=== PATIENT | female | born 2005 | race Two or more races ===

== ENCOUNTER 2024-06-08 09:41 | Emergency (ER) | payer MEDICAID, SELFPAY ==
[2024-06-08 09:42] VITALS: BMI 17.7
--- NOTE | 2024-06-08 09:50 | XR_ITS ---
Examination: Hand, right 3 views Technique: Right hand AP oblique lateral 3 views Exam date and time: June 08, 2019 5:10 AM Indications: Injury to the head today third digit pain Findings: No acute fracture No dislocation No foreign body Impression: No acute fracture
[2024-06-08 09:55] VITALS: BP 142/85; PULSE 69; RESP 19; TEMP 36.9; O2SAT 97
--- NOTE | 2024-06-08 10:03 | EDNOTE_ITS ---
Upper Extremity Injury RME/HPI General Chief Complaint: Hand/Wrist Problems Stated Complaint: R 3RD DIGIT INJURY Time Seen by Provider: 06/08/24 09:50 Source: patient Arrival date/time: 06/08/24 09:41 18-year-old female with no known medical history presents to the emergency room with a chief complaint of tenderness pain to the third digit on her right hand after smashing her hand on a car door yesterday afternoon. Mode of arrival: ambulatory Limitations: no limitations Related Data Previous Rx's ?Medication ?Instructions ?Recorded acetaminophen 325 mg capsule 650 mg (2 x 325 mg) PO Q6 H PRN 04/13/20 pain #30 caps ibuprofen 400 mg tablet 400 mg PO Q8H #20 tabs 04/13 Allergies Allergy/AdvReac Type Severity Reaction Status Date / Time No Known Allergies Allergy Verified 04/13/20 13:27 Review of Systems Review of Systems Systems Reviewed: All systems reviewed, normal except as documented Constitutional Constitutional: Reports system reviewed and no additional complaints, except as documented, Denies fatigue, Denies fever(s), Denies headache(s) and Denies weakness Eyes Eyes: Reports system reviewed and no additional complaints, except as documented, Denies blurry vision and Denies change in vision ENT Ears, Nose, Mouth, and Throat: Reports system reviewed and no additional complaints, except as documented, Denies otalgia, Denies headache(s), Denies nasal congestion, Denies throat swelling and Denies vertigo Cardiovascular Cardiovascular: Reports system reviewed and no additional complaints, except as documented, Denies chest pain, Denies dyspnea and Denies dyspnea on exertion Respiratory Respiratory: Reports system reviewed and no additional complaints, except as documented, Denies chest congestion, Denies cough, Denies dyspnea, Denies dyspnea on exertion and Denies wheezing Gastrointestinal Gastrointestinal: Reports system reviewed and no additional complaints, except as documented, Denies abdominal pain, Denies cramping, Denies nausea and Denies vomiting Genitourinary Genitourinary: Reports system reviewed and no additional complaints, except as documented Musculoskeletal Musculoskeletal: Reports system reviewed and no additional complaints, except as documented and Denies back pain Integumentary/Breasts Skin/Breast: Reports system reviewed and no additional complaints, except as documented and Denies wounds Neurologic Neurologic: Reports system reviewed and no additional complaints, except as documented, Denies confusion, Denies headache(s), Denies lack of coordination, Denies vertigo and Denies weakness Psychiatric Psychiatric: Reports system reviewed and no additional complaints, except as documented, Denies anxiety, Denies confusion, Denies depression, Denies paranoia, Denies suicidal ideation and Denies tactile hallucinations Endocrine Endocrine: Reports system reviewed and no additional complaints, except as documented and Denies fatigue Hematologic/Lymphatic Hematologic/Lymphatic: Reports system reviewed and no additional complaints, except as documented and Denies lymphadenopathy Allergic/Immunologic Allergic/Immunologic: Reports system reviewed and no additional complaints, except as documented, Denies throat swelling, Denies urticaria and Denies wheezing Past Medical History Past Medical History CARDIAC: Negative Congestive Heart Failure RESPIRATORY: Negative Chronic Obstructive Pulmonary Disease (COPD) GENITOURINARY: Negative Renal Disease ENDOCRINE: Negative Diabetes Mellitus Type 1 or Diabetes Mellitus Type 2 Social History SMOKING STATUS: Never smoker ED Exam General Limitations: Present no limitations General appearance: Present alert and in no apparent distress Head Head exam: Present atraumatic Eye Eye exam: Present normal appearance, PERRL and EOMI ENT ENT exam: Present normal exam, normal oropharynx and mucous membranes moist Neck Neck exam: Present normal inspection, full ROM and trachea midline Chest Chest inspection: Present normal inspection and symmetric chest wall rise Respiratory Respiratory exam: Present normal lung sounds bilaterally Cardiovascular Cardiovascular exam: Present regular rate, normal rhythm and normal heart sounds Abdominal Exam Abdominal exam: Present soft and normal bowel sounds Extremities Exam Extremities exam: Present normal inspection and full ROM Back Exam Back exam: Present normal inspection and full ROM Neurological Exam Neurological exam: Present alert, oriented X3 and CN II-XII intact Psychiatric Psychiatric exam: Present normal affect and normal mood Skin Skin exam: Present warm, dry, intact and normal color Course Quality Measures none Orders Category Date Time Status XR hand comp RT min 3V Stat Exams 06/08/24 09:50 Completed Vital Signs Vital signs: Vital Signs Temperature 98.5 F 06/08/24 09:55 Pulse Rate 69 06/08/24 09:55 Respiratory Rate 19 06/08/24 09:55 Blood Pressure 142/85 H 06/08/24 09:55 Pulse Oximetry (%) 97 06/08/24 09:55 Oxygen Delivery Method Room Air 06/08/24 09:55 O2 saturation 97% within normal limits Extremity Injury MDM Narrative MDM Narrative:: 18-year-old female with no known medical history presents to the emergency room with a chief complaint of tenderness pain to the third digit on her right hand after smashing her hand on a car door yesterday afternoon. Patient is hemodynamically stable and in no apparent distress Physical examination shows pain and tenderness to the right middle finger. There is bleeding in the nailbed patient states this injury occurred yesterday. X-ray of the hand was completed and was negative for any acute fracture or dislocation. Patient was discharged and educated to follow-up with primary care provider and return the emergency room for any evidence of worsening signs or send Patient data External records reviewed:: [facility] previous records Clinical information provided by:: patient Social determinants that could affect healthcare access:: none Patient has the following chronic illnesses:: No chronic illness How is presenting disease/condition affected by chronic disease/condition?: no chronic disease Evaluation data The following diagnostics were reviewed and interpreted by me:: lab results and radiology exam(s) Lab and/or radiology exams considered but not ordered:: Labs and radiology exams considered and ordered Interpretation Summary: Finger [id number]: No acute fracture No dislocation No foreign body Impression: No acute fracture Medications / Prescriptions Medications or Prescriptions considered but not ordered:: Medication not given Medication administrations:: Medication not given Consultations Consultation(s) initiated? (list below): No Diagnosis Upper Extremity Injury Differential Diagnosis: finger sprain and other (Finger fracture) Most likely diagnosis given after review of the tests above:: Finger sprain Admission Indicated Admission indicated?: not indicated Admission Request Was there a request for admission?: No Disposition Plan Disposition Plan: Discharge Discharge Attestation Discharge Attestation: The patient and all family members were given an opportunity to ask questions and understood the discharge instructions. Discharge instructions specifically effects, indications for sooner follow up or return to the emergency department, and the expected course of current diagnosis. Patient condition: Stable Discharge Plan Plan Patient Disposition: HOME (Self Care) Disposition Comment: Stable Prescriptions/Referrals Prescriptions/Med Rec: No Action acetaminophen 325 mg capsule 650 mg PO Q6H PRN (Reason: pain) Qty: 30 0RF ibuprofen 400 mg tablet 400 mg PO Q8H Qty: 20 0RF Referrals: No Primary/Family,Physician [Primary Care Provider] - In 1 week Problem List Clinical Impression: Finger sprain Patient/Caregiver Discharge Instructions Education Materials: ED Finger Sprain Additional Instructions: Please follow-up with your primary care provider in the next 24 to 48 hours. X-ray was completed and was negative for any acute fracture. For any evidence of worsening signs or symptoms please return to the emergency room immediately Print Language: Azeri Stand Alone Forms: Valeria Award Info., Work/School Release, Patient Portal Info Letter PA/SPORTS ATHLETIC TRAINER Supervising Physician PA/SPORTS ATHLETIC TRAINER Supervising Physician: Dr Haro
[2024-06-08 13:13] VITALS: BP 109/72; PULSE 62; RESP 18; TEMP 36.8; O2SAT 98
== END 2024-06-08 13:18 | disposition home or self-care (01) ==
PROVIDERS: Emergency Provider Emergency Medicine
DX: S63.612A Unspecified sprain of right middle finger, initial encounter (principal); W23.0XXA Caught, crushed, jammed, or pinched between moving objects, initial encounter
CPT/HCPCS: 73130; 99283

== ENCOUNTER 2024-10-01 13:06 | Emergency (ER) | payer MEDICAID, SELFPAY ==
[2024-10-01 13:23] VITALS: BP 118/74; PULSE 73; RESP 20; TEMP 37.1; O2SAT 99
--- NOTE | 2024-10-01 13:29 | XR_ITS ---
Examination: Abdomen sonogram, Limited Date and time of exam: October 01, 2024 1400 hours INDICATIONS: Right upper abdominal pain with nausea vomiting beginning 2 days ago Technique: Real-time ring scale transabdominal sonographic images of the upper abdomen obtained. Findings: No sonographic visualization appendix IMPRESSION: No sonographic visualization appendix
--- NOTE | 2024-10-01 13:35 | PD.EDABDPN ---
ED Abdominal Pain RME/HPI General Chief Complaint: Nausea/Vomiting/Diarrhea Stated complaint: SEVERE N/V/D W/ ABD PAIN SINCE YESTERDAY Time seen by provider: 10/01/24 13:21 Arrival date/time: 10/01/24 13:06 19-year-old female with no known medical history presents to the emergency room with a chief complaint of nausea, vomiting, diarrhea, right lower quadrant abdominal pain x 2 days Source: patient Mode of arrival: ambulatory Limitations: no limitations Related Data Previous Rx's ?Medication ?Instructions ?Recorded acetaminophen 325 mg capsule 650 mg (2 x 325 mg) PO Q6H PRN 04/13/20 pain #30 caps ibuprofen 400 mg tablet 400 mg PO Q8H #20 tabs 04/13/20 loperamide 2 mg capsule 2 mg PO Q6H PRN loose stool #14 10/01/24 (Anti-Diarrheal (loperamide)) caps ondansetron 4 mg disintegrating 4 mg PO Q8H PRN nausea and 10/01/24 tablet vomiting #14 tabs Allergies Allergy/AdvReac Type Severity Reaction Status Date / Time No Known Allergies Allergy Verified 10/01/24 13:09 Review of Systems Review of Systems Systems Reviewed: All systems reviewed, normal except as documented Constitutional Constitutional: Reports system reviewed and no additional complaints, except as documented, Denies fatigue, Denies fever(s), Denies headache(s) and Denies weakness Eyes Eyes: Reports system reviewed and no additional complaints, except as documented, Denies blurry vision and Denies change in vision ENT Ears, Nose, Mouth, and Throat: Reports system reviewed and no additional complaints, except as documented, Denies otalgia, Denies headache(s), Denies nasal congestion, Denies throat swelling and Denies vertigo Cardiovascular Cardiovascular: Reports system reviewed and no additional complaints, except as documented, Denies chest pain, Denies dyspnea and Denies dyspnea on exertion Respiratory Respiratory: Reports system reviewed and no additional complaints, except as documented, Denies chest congestion, Denies cough, Denies dyspnea, Denies dyspnea on exertion and Denies wheezing Gastrointestinal Gastrointestinal: Reports system reviewed and no additional complaints, except as documented, Reports abdominal pain, Reports cramping, Reports loose stools, Reports nausea and Reports vomiting Genitourinary Genitourinary: Reports system reviewed and no additional complaints, except as documented Musculoskeletal Musculoskeletal: Reports system reviewed and no additional complaints, except as documented and Denies back pain Integumentary/Breasts Skin/Breast: Reports system reviewed and no additional complaints, except as documented and Denies wounds Neurologic Neurologic: Reports system reviewed and no additional complaints, except as documented, Denies confusion, Denies headache(s), Denies lack of coordination, Denies vertigo and Denies weakness Psychiatric Psychiatric: Reports system reviewed and no additional complaints, except as documented, Denies anxiety, Denies confusion, Denies depression, Denies paranoia, Denies suicidal ideation and Denies tactile hallucinations Endocrine Endocrine: Reports system reviewed and no additional complaints, except as documented and Denies fatigue Hematologic/Lymphatic Hematologic/Lymphatic: Reports system reviewed and no additional complaints, except as documented and Denies lymphadenopathy Allergic/Immunologic Allergic/Immunologic: Reports system reviewed and no additional complaints, except as documented, Denies throat swelling, Denies urticaria and Denies wheezing Past Medical History Past Medical History CARDIAC: Negative Congestive Heart Failure RESPIRATORY: Negative Chronic Obstructive Pulmonary Disease (COPD) GENITOURINARY: Negative Renal Disease ENDOCRINE: Negative Diabetes Mellitus Type 1 or Diabetes Mellitus Type 2 Social History SMOKING STATUS: Never smoker ED Exam General Limitations: Present no limitations General appearance: Present alert and in no apparent distress Head Head exam: Present atraumatic Eye Eye exam: Present normal appearance, PERRL and EOMI ENT ENT exam: Present normal exam, normal oropharynx and mucous membranes moist Neck Neck exam: Present normal inspection, full ROM and trachea midline Chest Chest inspection: Present normal inspection and symmetric chest wall rise Respiratory Respiratory exam: Present normal lung sounds bilaterally Cardiovascular Cardiovascular exam: Present regular rate, normal rhythm and normal heart sounds Abdominal Exam Abdominal exam: Present soft, tenderness and normal bowel sounds; Absent Sheriff's sign or tenderness at [place]'s [place] Abdominal tenderness: Present RLQ Extremities Exam Extremities exam: Present normal inspection and full ROM Back Exam Back exam: Present normal inspection and full ROM Neurological Exam Neurological exam: Present alert, oriented X3 and CN II-XII intact Psychiatric Psychiatric exam: Present normal affect and normal mood Skin Skin exam: Present warm, dry, intact and normal color Course Quality Measures none Orders Category Date Time Status US abdomen limited Stat Exams 10/01/24 13:29 Completed CBC Stat Lab 10/01/24 13:41 Completed CMP [Comprehensive Metabolic Panel] Stat Lab 10/01/24 13:41 Completed HCG Qualitative,Urine Stat Lab 10/01/24 13:40 Completed Lipase Stat Lab 10/01/24 13:41 Completed UA [Urinalysis] Stat Lab 10/01/24 13:40 Completed Urine Culture Stat Lab 10/01/24 13:40 Received Vital Signs Vital signs: Vital Signs Temperature 98.8 F 10/01/24 13:23 Pulse Rate 73 10/01/24 13:23 Respiratory Rate 20 10/01/24 13:23 Blood Pressure 118/74 10/01/24 13:23 Pulse Oximetry (%) 99 10/01/24 13:23 Oxygen Delivery Method Room Air 10/01/24 13:23 O2 saturation 99% within normal limits Abdominal Pain MDM MDM Narrative MDM Narrative:: 19-year-old female with no known medical history presents to the emergency room with a chief complaint of nausea, vomiting, diarrhea, right lower quadrant abdominal pain x 2 days Patient is hemodynamically stable and in no apparent distress. She is afebrile not tachycardic not tachypneic Physical examination shows some tenderness to the epigastric area of her abdomen as well as the right lower quadrant. There is negative tenderness to McBurney's point and there is no rebound tenderness. The patient is having vomiting diarrhea and states that she is having intermittent fevers at home. Ultrasound of the right lower quadrant was completed and was negative examination as appendix was unable to be visualized due to the bowel gas. CBC CMP were negative for any leukocytosis. Based on the Cohn score there is a low suspicion for appendicitis. The patient has no leukocytosis. Patient was discharged and educated to follow-up with primary care provider in the next 24 to 48 hours and return to the emergency room for any evidence of worsening signs or symptoms Patient data External records reviewed:: [facility] previous records Clinical information provided by:: patient Social determinants that could affect healthcare access:: none Patient has the following chronic illnesses:: No chronic illness How is presenting disease/condition affected by chronic disease/condition?: no chronic disease Evaluation data The following diagnostics were reviewed and interpreted by me:: lab results and radiology exam(s) Lab and/or radiology exams considered but not ordered:: Labs and radiology exams considered and ordered Interpretation Summary: Ultrasound abdomen-Findings: No sonographic visualization appendix IMPRESSION: No sonographic visualization appendix Medications / Prescriptions Medications or Prescriptions considered but not ordered:: No medication given Medication administrations:: No medication given Consultations Consultation(s) initiated? (list below): No Diagnosis Differential diagnosis abdominal pain: abdominal pain, acute appendicitis, constipation and gastroenteritis Most likely diagnosis given after review of the tests above:: Gastroenteritis Admission Indicated Admission indicated?: not indicated Admission Request Was there a request for admission?: No Disposition Plan Disposition Plan: Discharge Discharge Attestation Discharge Attestation: The patient and all family members were given an opportunity to ask questions and understood the discharge instructions. Discharge instructions specifically effects, indications for sooner follow up or return to the emergency department, and the expected course of current diagnosis. Patient condition: Stable Discharge Plan Plan Patient Disposition: HOME (Self Care) Discharge Disposition comment: Stable Prescriptions/Referrals Prescriptions/Med Rec: New loperamide [Anti-Diarrheal (loperamide)] 2 mg capsule 2 mg PO Q6H PRN (Reason: loose stool) Qty: 14 0RF ondansetron 4 mg tablet,disintegrating 4 mg PO Q8H PRN (Reason: nausea and vomiting) Qty: 14 0RF No Action acetaminophen 325 mg capsule 650 mg PO Q6H PRN (Reason: pain) Qty: 30 0RF ibuprofen 400 mg tablet 400 mg PO Q8H Qty: 20 0RF Referrals: No Primary/Family,Physician [Primary Care Provider] - In 1 week Problem List Clinical Impression: Gastroenteritis Patient/Caregiver Discharge Instructions Education Materials: Understanding Colitis, ED Gastroenteritis, Noninfectious Additional Instructions: Please follow-up with your primary care provider in the next 24 to 48 hours Medication was sent to your pharmacy please pick it up and take it as indicated to help you with your signs and symptoms Your ultrasound was negative for any acute findings Your blood work and urinalysis were within normal limits For any evidence of worsening signs or symptoms return to the emergency room immediately Print Language: [place] Citizen Stand Alone Forms: Valeria Award Info., Work/School Release, Patient Portal Info Letter PA/LORRI Supervising Physician NORBERTO/LORRI Supervising Physician: Dr. Bell
[2024-10-01 13:56] LABS: Basophils % (Auto) 0 % (0-2.5); Eosinophils # (Auto) 0.1 Thou/mm3 (0.0-0.5); Eosinophils % (Auto) 1 % (0-10); Hematocrit 42.1 % (36.0-46.0); Hemoglobin 14.9 g/dL (12.0-16.0); Immature Granulocytes % (Auto) 0 % (0-0); Immature Granulocytes Auto 0.02 Thou/mm3 (0.00-0.00); Lymphocytes # (Auto) 0.8 Thou/mm3 (1.0-4.8); Lymphocytes % (Auto) 7 % (10-50); Mean Corpuscular HGB Conc 35.4 g/dl (31.0-37.0); Mean Corpuscular Hemoglobin 31.9 pg (25.0-35.0); Mean Corpuscular Volume 90 fL (80-100); Monocytes # (Auto) 0.6 Thou/mm3 (0.0-0.8); Monocytes % (Auto) 6 % (0-12); Neutrophils # (Auto) 8.9 Thou/mm3 (1.8-7.7); Neutrophils % (Auto) 86 % (37-80); Nucleated Red Blood Cell % 0 /100 WBC (0); Platelet Count 203 Thou/mm3 (140-440); RDW Standard Deviation 39.9 fL (36.4-46.3); Red Blood Count 4.67 Miln/mm3 (4.00-5.20); White Blood Count 10.3 Thou/mm3 (3.6-11.0)
[2024-10-01 14:06] LABS: Collection Type, Urine Clean Catch
[2024-10-01 14:12] LABS: HCG Qualitative,Urine Negative
[2024-10-01 14:14] LABS: Alanine Aminotransferase 42 U/L (10-49); Alkaline Phosphatase 55 U/L (46-116); Anion Gap 11 (7-16); BUN/Creatinine Ratio 16 Ratio (12-20); Bilirubin,Total 1.1 mg/dL (0.3-1.2); Blood Urea Nitrogen 11 mg/dL (9-23); Calcium 9.3 mg/dL (8.3-10.6); Calcium (Corrected) 9.3 mg/dL (8.5-10.1); Carbon Dioxide 27.1 mMol/L (20.0-31.0); Chloride 103 mMol/L (98-107); Creatinine (Component) 0.7 mg/dL (0.6-1.3); Globulin 2.5 gm/dL (2.3-3.5); Glucose 100 mg/dL (74-106); Lipase 27 U/L (12-53); Osmolality,Calculated 280 (275-295); Potassium 3.6 mMol/L (3.4-5.1); Sodium 141 mMol/L (136-145); Total Protein 7.5 gm/dL (5.7-8.2); eGFR > 60 See Note
[2024-10-01 14:17] LABS: Bilirubin,Urine Negative (Negative); Blood,Urine Negative (Negative); Clarity,Urine Clear (Clear/Hazy); Color,Urine Lt-Yellow (Lt Yel-Yel); Glucose, Urine Negative (Negative); Ketones,Urine Trace (Negative); Leukocyte Esterase,Urine Negative (Negative); Nitrite,Urine Negative (Negative); PH,Urine 7.5 (5.0-7.0); Protein,Urine Negative (Neg - Trace); RBC,Urine 1 /hpf (0-3); Specific Gravity,Urine 1.019 (1.001-1.035); Squamous Epithelial Cell,Urine 1 /hpf (0-5); Urobilinogen,Urine Negative mg/dL (0.0-1.0); WBC,Urine < 1 /hpf (0-5)
[2024-10-01 15:54] VITALS: BP 105/60; PULSE 74; RESP 16; O2SAT 99
== END 2024-10-01 15:55 | disposition home or self-care (01) ==
PROVIDERS: Nurse Practitioner Family; Emergency Provider Emergency Medicine
DX: K52.9 Noninfective gastroenteritis and colitis, unspecified (principal)
CPT/HCPCS: 36415; 76705; 80053; 81001; 81025; 83690; 85025; 87086; 99284

== ENCOUNTER 2025-02-02 12:14 | Emergency (ER) | payer MEDICAID, SELFPAY ==
[2025-02-02 12:14] VITALS: BMI 18.6
[2025-02-02 12:53] VITALS: BP 120/80; PULSE 88; RESP 18; TEMP 36.9; O2SAT 99
--- NOTE | 2025-02-02 12:56 | XR_ITS ---
Examination: Abdomen sonogram, Limited Date and time of exam: February 02, 2025, 1300 hours INDICATIONS: Epigastric pain beginning 3 days ago Technique: Real-time ring scale transabdominal sonographic images of the upper abdomen obtained. Findings: Normal gallbladder. Normal common bile duct 0.3 cm Pancreatic head 1.0 cm Liver 14.5 cm smooth contour no focal liver lesions Normal hepatopetal portal venous IMPRESSION: Normal gallbladder Normal common bile duct
[2025-02-02 14:14] LABS: Basophils # (Auto) 0.0 Thou/mm3 (0.0-0.2); Basophils % (Auto) 1 % (0-2.5); Eosinophils # (Auto) 0.0 Thou/mm3 (0.0-0.5); Eosinophils % (Auto) 0 % (0-10); Hematocrit 38.8 % (36.0-46.0); Hemoglobin 13.3 g/dL (12.0-16.0); Immature Granulocytes Auto 0.02 Thou/mm3 (0.00-0.00); Lymphocytes # (Auto) 2.1 Thou/mm3 (1.0-4.8); Lymphocytes % (Auto) 28 % (10-50); Mean Corpuscular HGB Conc 34.3 g/dl (31.0-37.0); Mean Corpuscular Hemoglobin 31.2 pg (25.0-35.0); Mean Corpuscular Volume 91 fL (80-100); Monocytes # (Auto) 0.7 Thou/mm3 (0.0-0.8); Monocytes % (Auto) 9 % (0-12); Neutrophils # (Auto) 4.7 Thou/mm3 (1.8-7.7); Neutrophils % (Auto) 62 % (37-80); Nucleated Red Blood Cell # 0.00 Thou/mm3 (0.00-0.00); Nucleated Red Blood Cell % 0 /100 WBC (0); Platelet Count 239 Thou/mm3 (140-440); RDW Standard Deviation 39.7 fL (36.4-46.3); Red Blood Count 4.26 Miln/mm3 (4.00-5.20); White Blood Count 7.5 Thou/mm3 (3.6-11.0)
[2025-02-02 14:18] LABS: Collection Type, Urine Clean Catch
[2025-02-02 14:32] LABS: Alanine Aminotransferase 12 U/L (10-49); Albumin, Serum 4.9 gm/dL (3.5-5.0); Albumin/Globulin Ratio 2.0 (1.2-2.2); Alkaline Phosphatase 42 U/L (46-116); Anion Gap 11 (7-16); Aspartate Amino Transferase 15 U/L (0-34); BUN/Creatinine Ratio 11 Ratio (12-20); Bilirubin,Total 0.8 mg/dL (0.3-1.2); Blood Urea Nitrogen 8 mg/dL (9-23); Calcium 9.6 mg/dL (8.3-10.6); Calcium (Corrected) 9.6 mg/dL (8.5-10.1); Carbon Dioxide 23.7 mMol/L (20.0-31.0); Chloride 104 mMol/L (98-107); Creatinine (Component) 0.7 mg/dL (0.6-1.3); Estimated Creatinine Clearance 104.7 mL/min (>60); Globulin 2.4 gm/dL (2.3-3.5); Glucose 87 mg/dL (74-106); Lipase 28 U/L (12-53); Osmolality,Calculated 274 (275-295); Potassium 3.6 mMol/L (3.4-5.1); Sodium 139 mMol/L (136-145); Total Protein 7.3 gm/dL (5.7-8.2); eGFR > 60 See Note
[2025-02-02 14:47] LABS: HCG Qualitative,Urine Positive
[2025-02-02 14:55] LABS: Bilirubin,Urine Negative (Negative); Blood,Urine 3+ (Negative); Color,Urine Lt-Yellow (Lt Yel-Yel); Glucose, Urine Negative (Negative); Ketones,Urine Negative (Negative); Leukocyte Esterase,Urine Positive (Negative); Nitrite,Urine Negative (Negative); PH,Urine 6.5 (5.0-7.0); Protein,Urine Trace (Neg - Trace); RBC,Urine 3 /hpf (0-3); Specific Gravity,Urine 1.019 (1.001-1.035); Squamous Epithelial Cell,Urine 8 /hpf (0-5); Urobilinogen,Urine Negative mg/dL (0.0-1.0); WBC,Urine 6 /hpf (0-5)
--- NOTE | 2025-02-02 14:55 | XR_ITS ---
Examination: Complete OB ultrasound, less than 14 weeks, transabdominal Date and time of exam: February 02, 2025, 1605 hours INDICATIONS: Abdominal pain nausea vomiting beginning 3 days ago Technique: Obstetrical ultrasound images less than 14 weeks performed via transabdominal imaging Findings: Uterus 8.7 cm, empty intrauterine gestational sac 1.5 cm corresponds to 6 weeks 2 days gestational age No cardiac motion no pole Right ovary 4.5 cm arterial flow 21 mm cyst Left ovary 3.5 cm arterial flow IMPRESSION: Empty intrauterine gestational sac corresponding to 6 weeks 2 days gestational age Recommend transvaginal pelvic sonography follow-up to best assess for viability
[2025-02-02 14:58] LABS: Clarity,Urine Hazy (Clear/Hazy)
--- NOTE | 2025-02-02 16:47 | EDNOTE_ITS ---
ED Abdominal Pain RME/HPI General Chief Complaint: Abdominal Pain Stated complaint: EPIGASTRIC PAIN FOR FEW DAYS Time seen by provider: 02/02/25 12:24 Arrival date/time: 02/02/25 12:14 This is a case of 19-year-old female with no medical history came in in the emergency room due to abdominal pain mostly on the epigastric area for 3 days with no associated symptoms denies any nausea vomiting constipation diarrhea or blood in stool patient states that she might be 1 para 0 denies any vaginal bleeding vaginal spotting or vaginal discharge no fever no chills Limitations: no limitations Related Data Previous Rx's ?Medication ?Instructions ?Recorded acetaminophen 325 mg capsule 650 mg (2 x 325 mg) PO Q6 H PRN 04/13/20 pain #30 caps ibuprofen 400 mg tablet 400 mg PO Q8H #20 tabs 04/13 loperamide 2 mg capsule 2 mg PO Q6H PRN loose stool #14 10/01/24 (Anti-Diarrheal (loperamide)) caps ondansetron 4 mg disintegrating 4 mg PO Q8H PRN nausea and 10/01/24 tablet vomiting #14 tabs nitrofurantoin 100 mg PO BID #20 caps 02/02 monohydrate/macrocrystals 100 mg capsule (Macrobid) vit no.95-ferrous 1 tab PO QDAY #30 tabs 01/21 07/15 fumarate 28 mg-folic acid 800 mcg tablet () Allergies Allergy/AdvReac Type Severity Reaction Status Date / Time No Known Allergies Allergy Verified 02/02/25 12:16 Review of Systems Review of Systems Systems Reviewed: All systems reviewed, normal except as documented Constitutional Constitutional: Reports system reviewed and no additional complaints, except as documented and Reports as per HPI ENT Ears, Nose, Mouth, and Throat: Denies dysphagia and Denies odynophagia Cardiovascular Cardiovascular: Reports system reviewed and no additional complaints, except as documented and Reports as per HPI Respiratory Respiratory: Reports system reviewed and no additional complaints, except as documented and Reports as per HPI Gastrointestinal Gastrointestinal: Reports system reviewed and no additional complaints, except as documented, Reports as per HPI, Reports abdominal pain, Denies belching, Denies bloating, Denies change in bowel habits, Denies change in stool character, Denies coffee ground emesis, Denies constipation, Denies cramping, D enies diarrhea, Denies dyspepsia, Denies dysphagia, Denies early satiety, Denies excessive flatus, Denies fecal incontinence, Denies heartburn, Denies hematemesis, Denies hematochezia, Denies loose stools, Denies melena, Denies nausea, Denies odynophagia and Denies tenesmus Neurologic Neurologic: Reports system reviewed and no additional complaints, except as documented and Reports as per HPI Past Medical History Past Medical History CARDIAC: Negative Congestive Heart Failure RESPIRATORY: Negative Chronic Obstructive Pulmonary Disease (COPD) GENITOURINARY: Negative Renal Disease ENDOCRINE: Negative Diabetes Mellitus Type 1 or Diabetes Mellitus Type 2 Social History SMOKING STATUS: Never smoker ED Exam General Limitations: Present no limitations General appearance: Present alert, in no apparent distress and other Head Head exam: Present atraumatic, normocephalic and normal inspection Eye Eye exam: Present normal appearance, PERRL and EOMI ENT ENT exam: Present normal exam, normal oropharynx and mucous membranes moist Neck Neck exam: Present normal inspection, full ROM and trachea midline; Absent tenderness, meningismus, lymphadenopathy or thyromegaly Chest Chest inspection: Present normal inspection and symmetric chest wall rise; Absent tenderness Respiratory Respiratory exam: Present normal lung sounds bilaterally; Absent respiratory distress, wheezes, stridor, accessory muscle use or prolonged expiratory phase Cardiovascular Cardiovascular exam: Present regular rate, normal rhythm and normal heart sounds; Absent bradycardia, tachycardia, irregular rhythm, systolic murmur or diastolic murmur Abdominal Exam Abdominal exam: Present soft, normal bowel sounds and other (No CVA tenderness bladder is not distended not tender); Absent distention, tenderness, guarding, rebound, rigidity, diminished bowel sounds, hyperactive bowel sounds, hypoactive bowel sounds, organomegaly, psoas sign, obturator sign, Sheriff's sign, Rovsing's sign or tenderness at McBurney's Point Extremities Exam Extremities exam: Present normal inspection and full ROM Back Exam Back exam: Present normal inspection and full ROM Neurological Exam Neurological exam: Present alert, oriented X3, CN II-XII intact, normal gait and reflexes normal; Absent motor sensory deficit Psychiatric Psychiatric exam: Present normal affect and normal mood Skin Skin exam: Present warm, dry, intact, normal color and other (Excellent skin turgor) Course Quality Measures none Orders Category Date Time Status US OB <= 14 weeks fetus Stat Exams 02/02/25 14:55 Completed US gall bladder Stat Exams 02/02/25 12:56 Completed Beta HCG,Quantitative Stat Lab 02/02/25 14:00 Completed CBC Stat Lab 02/02/25 14:00 Completed Comprehensive Metabolic Panel Stat Lab 02/02/25 14:00 Completed HCG Qualitative,Urine Stat Lab 02/02/25 13:39 Completed Lipase Stat Lab 02/02/25 14:00 Completed Urinalysis Stat Lab 02/02/25 13:39 Completed Vital Signs Vital signs: Vital Signs Temperature 98.5 F 02/02/25 12:53 Pulse Rate 88 02/02/25 12:53 Respiratory Rate 18 02/02/25 12:53 Blood Pressure 120/80 02/02/25 12:53 Pulse Oximetry (%) 99 02/02/25 12:53 Oxygen Delivery Method Room Air 02/02/25 12:53 Oxygen saturation is 99% in room Abdominal Pain MDM MDM Narrative MDM Narrative:: This is a case of 19-year-old female with no medical history came in in the emergency room due to abdominal pain mostly on the epigastric area for 3 days with no associated symptoms denies any nausea vomiting constipation diarrhea or blood in stool patient states that she might be 1 para 0 denies any vaginal bleeding vaginal spotting or vaginal discharge no fever no chills physical examination patient is awake alert oriented not in distress nontoxic looking well-hydrated well-nourished excellent skin turgor abdominal exam is benign nonsurgical no guarding no rebound no rigidity negative psoas negative obturator negative Rovsing's negative Romi's no Sheriff sign negative CVA tenderness bladder is not distended not tender excellent skin turgor the rest of the physical examination neurological exam is normal and unremarkable blood test showed no leukocytosis no anemia kidney and liver function is normal no electrolyte imbalance lipase is normal urinalysis showed WBC and urine suggestive of urinary tract infection patient initial test is positive thus I ordered beta-hCG and noted to [id number] ultrasound showed empty uterine gestational sac based on my physical examination and history patient symptoms suggestive of abdominal pain in possible due to urinary tract infec tion I have long discussion with the patient patient needs to see an OB clinical safety specialist for further evaluation and treatment and to have repeat transvaginal ultrasound and beta-hCG to rule out ectopic threatened early since there is no vaginal bleeding or vaginal discharge patient is stable to be discharged home for any worsening symptoms or any emergent concerns she will return in the emergency room immediately or call 911 she was also advised if not seen OB in 2 days return to the emergency room for ultrasound and beta-hCG patient understood verbally the discharge instruction patient was given Macrobid for urinary tract Patient was discharged with comfortable condition walking with stable gait. Patient verbalized no further complains explained diagnosis and answered patient question. Patient is comfortable with the proposed management plan including the need to follow up with his/her primary care physician and any specialist if applicable Discussed patient for any urgent condition or worsening sx, He/She needed to go to emergency room immediately or call 911. Patient acknowledge the responsibility to follow up as instructed and to monitor her/his symptoms. For any persistence of the symptoms for more than 3-5 days return precaution advised. Discussed the result of the test and was given printed discharge instruction Patient data External records reviewed:: [facility] previous records Clinical information provided by:: patient Social determinants that could affect healthcare access:: none Patient has the following chronic illnesses:: None How is presenting disease/condition affected by chronic disease/condition?: no chronic disease Evaluation data The following diagnostics were reviewed and interpreted by me:: lab results and radiology exam(s) Lab and/or radiology exams considered but not ordered:: Reviewed Interpretation Summary: Reviewed Medications / Prescriptions Medications or Prescriptions considered but not ordered:: Given Medication administrations:: Given Consultations Consultation(s) initiated? (list below): No Diagnosis Differential diagnosis abdominal pain: abdominal pain and other (Abdominal pain in early urinary tract infection) Most likely diagnosis given after review of the tests above:: Abdominal pain in early urinary tract Admission Indicated Admission indicated?: not indicated Explain why admission is indicated or not indicated:: Not indicated Admission Request Was there a request for admission?: No Admission Attestation Admission request attestation: Not indicate Disposition Plan Disposition Plan: Discharge Discharge Attestation Discharge Attestation: The patient and all family members were given an opportunity to ask questions and understood the discharge instructions. Discharge instructions specifically effects, indications for sooner follow up or return to the emergency department, and the expected course of current diagnosis. Patient condition: Stable Discharge Plan Plan Patient Disposition: HOME (Self Care) Patient condition on transfer: Stable Prescriptions/Referrals Prescriptions/Med Rec: New nitrofurantoin monohyd/m-cryst [Macrobid] 100 mg capsule 100 mg PO BID Qty: 20 0RF Rx Instructions: must administer with a meal/food PNV no.95-ferrous fumarate-FA [] 28 mg iron- 800 mcg tablet 1 tab PO QDAY Qty: 30 0RF No Action acetaminophen 325 mg capsule 650 mg PO Q6H PRN (Reason: pain) Qty: 30 0RF ibuprofen 400 mg tablet 400 mg PO Q8H Qty: 20 0RF loperamide [Anti-Diarrheal (loperamide)] 2 mg capsule 2 mg PO Q6H PRN (Reason: loose stool) Qty: 14 0RF ondansetron 4 mg tablet,disintegrating 4 mg PO Q8H PRN (Reason: nausea and vomiting) Qty: 14 0RF Referrals: Barry Cullen MD [Primary Care Provider, Family Practice] - In 1 week Talia Nguyen MD [Physician, [facility]] - 02/02/25 Referral Note: For further evaluation and treatment of abdominal pain in to have repeat transvaginal ultrasound and beta hCG to rule out ectopic or early Problem List Clinical Impression: Abdominal pain during , Urinary tract infection Patient/Caregiver Discharge Instructions Education Materials: Abdominal Pain, Urinary Tract Infections in Women, ED Abdominal Pain, Early Additional Instructions: It is very important to see an OB clinical safety specialist for further evaluation and treatment of abdominal pain in to have repeat transvaginal ultrasound to rule out ectopic or early or threatened in early worsening symptoms or any emergent concern call 911 or go to the nearest emergency room take your medication as directed finish the course of antibiotic keep hydrated Pedialyte for hydration worsening symptoms or any emergent condition call 911 or go to the nearest emergency room if you will not see any OB clinical safety specialist in 2 days return to the emergency room to have repeat beta-hCG and transvaginal ultrasound to rule out the above impression continue to take your multivitamins Print Language: Setswana Stand Alone Forms: Valeria Award Info., Patient Portal Info Letter PA/BULB GRADER Supervising Physician PA/BULB GRADER Supervising Physician: Dr. Villa
== END 2025-02-02 17:44 | disposition home or self-care (01) ==
PROVIDERS: Nurse Practitioner Family; Emergency Provider Family Medicine; PCP Family Medicine
DX: O23.40 Unspecified infection of urinary tract in pregnancy, unspecified trimester (principal); Z3A.14 14 weeks gestation of pregnancy
CPT/HCPCS: 36415; 76705; 76801; 80053; 81001; 81025; 83690; 84702; 85025; 99283

== ENCOUNTER 2025-02-04 11:00 | Emergency (ER) | payer MEDICAID, SELFPAY ==
--- NOTE | 2025-02-04 11:11 | XR_ITS ---
Examination: OB Transvaginal ultrasound of the pelvis, complete Technique: Transvaginal sonographic images pelvis performed using ring scale imaging Exam date and time: February 04, 2025, 1113 hours INDICATIONS: Pelvic pain this week, empty intrauterine gestational sac corresponding to 6 weeks 2 days gestational age Ultrasound study February 02, 2025 FINDINGS: Uterus 9.1 cm pole 0.3 cm corresponds to 5 weeks 6 days gestational age Cardiac motion 117 bpm Right ovary 3.9 cm arterial flow, hemorrhagic cyst 20 x 16 mm Left ovary 3.0 cm arterial flow IMPRESSION: Viable intrauterine gestation 5 weeks 6 days.
[2025-02-04 11:19] VITALS: BP 121/84; PULSE 68; RESP 18; TEMP 37.2; O2SAT 99; BMI 17.9
--- NOTE | 2025-02-04 15:22 | PD.EDFMALE ---
ED Female Urogenital RME/HPI General Chief complaint: General Adult/Misc Complain Stated complaint: NEEDS US TO CONFIRM Time Seen by Provider: 02/04/25 11:11 Arrival date/time: 02/04/25 11:00 19-year-old female presents to the emergency department today patient was instructed return for reevaluation determine viability patient requesting lab work and ultrasound Limitations: no limitations Related Data Previous Rx's ?Medication ?Instructions ?Recorded acetaminophen 325 mg capsule 650 mg (2 x 325 mg) PO Q6H PRN 04/13/20 pain #30 caps ibuprofen 400 mg tablet 400 mg PO Q8H #20 tabs 04/13/20 loperamide 2 mg capsule 2 mg PO Q6H PRN loose stool #14 10/01/24 (Anti-Diarrheal (loperamide)) caps ondansetron 4 mg disintegrating 4 mg PO Q8H PRN nausea and 10/01/24 tablet vomiting #14 tabs nitrofurantoin 100 mg PO BID #20 caps 02/02/25 monohydrate/macrocrystals 100 mg capsule (Macrobid) vit no.95-ferrous 1 tab PO QDAY #30 tabs 02/02/25 fumarate 28 mg-folic acid 800 mcg tablet () Allergies Allergy/AdvReac Type Severity Reaction Status Date / Time No Known Allergies Allergy Verified 02/04/25 11:08 Review of Systems Review of Systems Systems Reviewed: All systems reviewed, normal except as documented Constitutional Constitutional: Reports system reviewed and no additional complaints, except as documented, Denies fever(s) and Denies headache(s) Eyes Eyes: Reports system reviewed and no additional complaints, except as documented and Denies blurry vision ENT Ears, Nose, Mouth, and Throat: Reports system reviewed and no additional complaints, except as documented, Denies headache(s), Denies nasal congestion and Denies nasal discharge Cardiovascular Cardiovascular: Reports system reviewed and no additional complaints, except as documented, Denies chest pain and Denies dyspnea Respiratory Respiratory: Reports system reviewed and no additional complaints, except as documented, Denies chest congestion, Denies cough and Denies dyspnea Gastrointestinal Gastrointestinal: Reports system reviewed and no additional complaints, except as documented and Denies abdominal pain Integumentary/Breasts Skin/Breast: Reports system reviewed and no additional complaints, except as documented and Denies rash Neurologic Neurologic: Reports system reviewed and no additional complaints, except as documented, Reports as per HPI and Denies headache(s) Past Medical History Past Medical History CARDIAC: Negative Congestive Heart Failure RESPIRATORY: Negative Chronic Obstructive Pulmonary Disease (COPD) GENITOURINARY: Negative Renal Disease ENDOCRINE: Negative Diabetes Mellitus Type 1 or Diabetes Mellitus Type 2 Social History SMOKING STATUS: Never smoker ED Exam General Limitations: Present no limitations General appearance: Present alert and in no apparent distress Head Head exam: Present atraumatic, normocephalic and normal inspection Eye Eye exam: Present normal appearance, PERRL and EOMI; Absent conjunctival injection ENT ENT exam: Present normal exam, normal oropharynx and mucous membranes moist Neck Neck exam: Present normal inspection, full ROM and trachea midline Chest Chest inspection: Present normal inspection and symmetric chest wall rise Respiratory Respiratory exam: Present normal lung sounds bilaterally; Absent respiratory distress Cardiovascular Cardiovascular exam: Present regular rate, normal rhythm and normal heart sounds Abdominal Exam Abdominal exam: Present soft and normal bowel sounds; Absent distention, tenderness, guarding, rebound or rigidity Extremities Exam Extremities exam: Present normal inspection and full ROM Back Exam Back exam: Present normal inspection and full ROM Neurological Exam Neurological exam: Present alert, oriented X3, CN II-XII intact, normal gait and reflexes normal; Absent motor sensory deficit Psychiatric Psychiatric exam: Present normal affect and normal mood Skin Skin exam: Present warm, dry, intact and normal color Course Quality Measures none Orders Category Date Time Status US OB transvaginal Stat Exams 02/04/25 11:11 Completed Beta HCG,Quantitative Stat Lab 02/04/25 12:41 Completed Vital Signs Vital signs: Vital Signs Temperature 98.9 F 02/04/25 11:19 Pulse Rate 68 02/04/25 11:19 Respiratory Rate 18 02/04/25 11:19 Blood Pressure 121/84 02/04/25 11:19 Pulse Oximetry (%) 99 02/04/25 11:19 Oxygen Delivery Method Room Air 02/04/25 11:19 O2 saturation 99% room air within normal limits Urogenital - Female MDM Narrative MDM Narrative:: 19-year-old female presents to the emergency department today patient was instructed return for reevaluation determine viability patient requesting lab work and ultrasound On exam patient well-appearing patient does not appear ill or toxic no acute stress Lab work and imaging obtained consistent with viable at this time Explained to patient I cannot determine what will happen in the future but at this time patient appears to have viable Patient discharged home in no distress to follow-up with primary care doctor in the next 24 to 48 hours and for any worsening symptoms to return to the ER immediately Patient data External records reviewed:: [facility] previous records Clinical information provided by:: patient Social determinants that could affect healthcare access:: none Patient has the following chronic illnesses:: None How is presenting disease/condition affected by chronic disease/condition?: no chronic disease Evaluation data The following diagnostics were reviewed and interpreted by me:: lab results and radiology exam(s) Lab and/or radiology exams considered but not ordered:: Labs radiology obtained Interpretation Summary: Reviewed by me Medications / Prescriptions Medications or Prescriptions considered but not ordered:: Given no meds Medication administrations:: Given no meds Consultations Consultation(s) initiated? (list below): No Diagnosis Urogenital Female Differential Diagnosis: urinary tract infection and cystitis Most likely diagnosis given after review of the tests above:: Threatened Admission Indicated Admission indicated?: not indicated Admission Request Was there a request for admission?: No Disposition Plan Disposition Plan: Discharge Discharge Attestation Discharge Attestation: The patient and all family members were given an opportunity to ask questions and understood the discharge instructions. Discharge instructions specifically effects, indications for sooner follow up or return to the emergency department, and the expected course of current diagnosis. Patient condition: Stable Discharge Plan Plan Patient Disposition: HOME (Self Care) Discharge Disposition comment: Stable Prescriptions/Referrals Prescriptions/Med Rec: No Action acetaminophen 325 mg capsule 650 mg PO Q6H PRN (Reason: pain) Qty: 30 0RF ibuprofen 400 mg tablet 400 mg PO Q8H Qty: 20 0RF nitrofurantoin monohyd/m-cryst [Macrobid] 100 mg capsule 100 mg PO BID Qty: 20 0RF Rx Instructions: must administer with a meal/food PNV no.95-ferrous fumarate-FA [] 28 mg iron- 800 mcg tablet 1 tab PO QDAY Qty: 30 0RF loperamide [Anti-Diarrheal (loperamide)] 2 mg capsule 2 mg PO Q6H PRN (Reason: loose stool) Qty: 14 0RF ondansetron 4 mg tablet,disintegrating 4 mg PO Q8H PRN (Reason: nausea and vomiting) Qty: 14 0RF Referrals: Barry Cullen MD [Primary Care Provider, Family Practice] - In 1 week Problem List Clinical Impression: Early stage of Patient/Caregiver Discharge Instructions Additional Instructions: Please follow-up with [facility] as discussed for worsening symptoms or concerns return immediately Print Language: Upper Sorbian Stand Alone Forms: Valeria Award Info., Patient Portal Info Letter PA/DRAFTER TOPOGRAPHICAL Supervising Physician PA/DRAFTER TOPOGRAPHICAL Supervising Physician: Dr. Sidhu
[2025-02-04 15:28] VITALS: BP 119/74; PULSE 69; RESP 18; TEMP 36.9; O2SAT 100
== END 2025-02-04 15:29 | disposition home or self-care (01) ==
PROVIDERS: Nurse Practitioner Primary Care; Emergency Provider Emergency Medicine; PCP Family Medicine
DX: O20.0 Threatened abortion (principal); Z3A.01 Less than 8 weeks gestation of pregnancy
CPT/HCPCS: 36415; 76817; 84702; 99284